=== PATIENT | male | born 1985 | race Caucasian/White ===

== ENCOUNTER 2017-02-11 11:23 | Emergency (ER) | payer BC, SELFPAY ==
[2017-02-11 12:30] VITALS: BP 134/89; PULSE 84; RESP 20; TEMP 37.2; O2SAT 99; BMI 25.8
== END 2017-02-11 20:00 | disposition home or self-care (01) ==
PROVIDERS: Emergency Provider Physician Assistant
DX: L72.3 Sebaceous cyst (principal)
CPT/HCPCS: 99202

== ENCOUNTER 2017-02-28 09:20 | Day surgery (SDC) | payer BC, SELFPAY ==
[2017-02-26 16:41] VITALS: BMI 25.0
[2017-02-28 10:10] VITALS: BP 163/83; PULSE 84; RESP 18; TEMP 36.9; O2SAT 98
--- NOTE | 2017-02-28 12:10 | HMH.ANESCL ---
[facility] Anesthesia Checklist - Patient Identification Patient Identification: Arm Band - Structural Data Admitted From: Home Planned Operative Procedure/s: excision right thigh lipoma Consent for Planned Operative Procedure(s) Verified: Yes Verified Documents: Surgical Consent, History and Physical - NPO Status Verified Time NPO: 00:00 - Additional verifications Anesthesia Reactions: No - Airway Assessment C-Spine Mobility Assessed: Yes (mp2) TMJ Mobility Assessed: Yes Dentition: Good Dentition - Neurological Assessment Level of Consciousness: Awake, Alert - Anesthesia Plan Anesthesia Risk discussed: Yes Anesthesia Plan: Verified ASA Class: II Anesthesia Type: General [facility] Anesthesia HX I have reviewed the patient's past medical history: Yes Medical History: Reports:: Seizures ( A CHILD) Denies:: Cancer, Diabetes Mellitus Type 1, Diabetes Mellitus Type 2, MRSA Other Medical History: Denies: Blood Transfusion Reaction Other Surgeries: Yes: Hernia Repair Amputation: No Fractures: No Comment: smoker *Family Hx:: Asthma, Diabetes, Heart Attack, Hypertension
--- NOTE | 2017-02-28 14:54 | SUR.PREOP ---
PT CHECKED. WENT TO BATHROOM WITHOUT DIFFICULTIES; URINATED.
--- NOTE | 2017-02-28 15:41 | P.OP_ITS ---
Date of procedure: 02/28/17 Pre-op Diagnosis:: Right thigh lipoma Post-op diagnosis:: same Procedure performed:: Excision of lipoma from right thigh (excisional length approximately 3 cm) with intermediate complexity closure Surgeon:: Melo Bang MD CHEMICAL INSTRUMENTATION OFFICER:: Florentino Lincoln Anesthesia: MAC, local Estimated blood loss (mL): 5 Clinical Note:: Patient is a 31-year-old white male who had been referred from the urgent treatment center for a cyst on the right thigh . He has had a palpable knot on the right thigh for several years however recently it had increased in size dramatically. He describes pain emanating from the region. He had essentially linear distribution of pain down the right lateral thigh. Patient also noted a left flank lipoma but he did not desire surgical excision of this. He was found to have lesion consistent with lipoma on the right lateral thigh. Options were discussed including nonoperative management. However, the patient felt that given the increasing size and discomfort that he would like to undergo surgical excision. Plan was made for excision with sedation. Operative findings:: Consistent with well-circumscribed subcutaneous lipoma Operative note:: Consent was obtained patient was taken to the operating room. Adequate intravenous sedation was achieved. The area was prepped and draped. Lesion was marked with a skin marker. Local anesthetic was infiltrated. Transverse incision was made. Careful dissection was carried down through full-thickness of the skin where well-circumscribed adipose tissue consistent with lipoma was encountered. This was carefully dissected free from surrounding tissues so as to excise it in its entirety and intact. It was sent off as a specimen. There was good hemostasis. Subdermal tissues were closed with interrupted 3-0 Vicryl. Skin was closed with 4-0 Monocryl in a subcuticular fashion. Clean dry sterile dressing was applied. Condition: stable Disposition: other Specimens:: Right thigh lipoma Complications:: None
[2017-02-28 15:45] VITALS: BP 104/58; PULSE 58; RESP 18; TEMP 36.6; O2SAT 98
[2017-02-28 16:00] VITALS: BP 102/68; PULSE 63; RESP 20; TEMP 36.6; O2SAT 98
[2017-02-28 16:15] VITALS: BP 112/53; PULSE 55; RESP 18; TEMP 36.8; O2SAT 98
== END 2017-02-28 16:18 | disposition home or self-care (01) ==
LOC: OR 09:21
PROVIDERS: PCP Physician Assistant; Visit Provider Surgery
PROC: (CPT 11403; principal; 2017-02-28 10:00)
DX: D17.23 Benign lipomatous neoplasm of skin and subcutaneous tissue of right leg (principal); M79.651 Pain in right thigh
CPT/HCPCS: 11403; 96374

== ENCOUNTER 2019-09-15 16:34 | Emergency (ER) | payer BC, SELFPAY ==
[2019-09-15 16:40] VITALS: BP 134/96; PULSE 81; RESP 16; TEMP 37; O2SAT 98; BMI 29.0
--- NOTE | 2019-09-15 17:01 | HMH.EDSKAF ---
ED Disposition Clinical Impression: Dermatophytosis Disposition: Home, Self-Care Condition on Discharge: Good Instructions: DI for Skin Abscess Prescriptions: Fluconazole [Diflucan 100mg tablet] 100 mg PO DAILY 21 Days #21 tab Transmission Status: Pending to [facility] Referrals: Jazmin Gordon PA [Primary Care Provider] - - Critical Care Critical Care Time: No Attestation: On , the high probability of a clinically significant, sudden or life threatening deterioration of the following system(s) required my full and direct attention, intervention and personal management. The time I documented below is in addition to time spent performing reported procedures but includes the following listed in this critical care notation. Medical Decision Making - Medical Records Medical records reviewed: Yes: I reviewed the patient's medical records. - [place] Inquiry Pt receiving controlled substance: No Vital Signs: 09/15/19 16:40 Temperature 98.6 F Temperature Source Oral Pulse Rate [Right Radial] 81 Respiratory Rate 16 Blood Pressure [Right Arm] 134/96 H Blood Pressure Mean [Right Arm] 108 Blood Pressure Source [Right Arm] Automatic Cuff Blood Pressure Position [Right Arm] Sitting 02 Sat by Pulse Oximetry 98 Oxygen Delivery Method Room Air - Lab Data Lab results reviewed: Yes: I reviewed the patient's lab results. Skin/Abscess/FB HPI - General Chief complaint: Skin/Abscess/Foreign Body Stated complaint: possible allergic reaction Time Seen by Provider: 09/15/19 17:00 Mode of Arrival: Ambulatory Limitations: No Limitations Description of Symptoms (Recalled from ER Triage Doc. by RN): Pt reports when he got home from work his SO noticed redness on the front of his neck. Pt reports his neck has been itching as work. Pt has welps noted to back of neck and top of L shoulder area. Pt denies SOA or pain. - History of Present Illness complaint: rash, lesion Onset (ago): day(s) Tetanus up to date: yes Location: chest, back Severity: mild Severity scale (1-10): 2 Quality: other (No symptoms) Consistency: constant Relieving factors: none Exacerbating factors: none Context: none Treatments prior to arrival: none - Related Data Previous Rx's Medication Instructions Recorded Azithromycin [Z-Perez 250mg Tab*] 250 mg PO UD DOSE PK #6 tab 09/15/18 methylPREDNISolone [Medrol 4mg 4 mg PO DIRECTED #21 tab 09/15/18 tab] ALBUTEROL HFA 90MCG (18GM) AER See Rx Instructions .ROUTE 09/27/18 .COMPLEX #18 unspecified Amoxicillin/Potassium Clav 1 tab PO Q12H 7 Days #14 tab 01/09/19 [Augmentin 875-125 Tablet] Fluconazole [Diflucan 100mg tablet] 100 mg PO DAILY 21 Days #21 tab 09/15/19 Allergies Allergy/AdvReac Type Severity Reaction Status Date / Time No Known Allergies Allergy Verified 06/11/17 15:11 [facility] History - Hepatitis A Screen Drug use history?: No High risk sexual behaviors?: No History of sexually transmitted infection?: No Currently employed?: No Childcare worker?: No Do you have indoor plumbing?: Yes Do you have electricity?: Yes Attestation statement:: This patient has been screened for Hepatitis A risk factors. I have reviewed the patient's past medical history: Yes Medical History: Reports:: Seizures Denies:: Cancer, Diabetes Mellitus Type 1, Diabetes Mellitus Type 2, MRSA Other Medical History: Denies: Blood Transfusion Reaction Other Surgeries: Yes: Hernia Repair Amputation: No Fractures: No Comment: smoker - Social History Smoking Status: Current every day smoker Tobacco Type: cigarettes # Packs/Day (cigarettes): 1 Alcohol Intake: never Alcohol Intake Frequency:: holidays/special occasions only Substance Use Type: marijuana Occupational Status: other Housing: house Household Members: family Family Hx:: Asthma, Diabetes, Heart Attack, Hypertension ROS Obtained: Yes All systems reviewed & no additional complaints - Constitutional Constitu
[2019-09-15 17:18] VITALS: BP 124/85; PULSE 87; RESP 18; TEMP 36.7; O2SAT 98
== END 2019-09-15 17:20 | disposition home or self-care (01) ==
LOC: ER 17:07
PROVIDERS: Emergency Provider Family Medicine; PCP Physician Assistant
DX: B35.9 Dermatophytosis, unspecified (principal); F17.210 Nicotine dependence, cigarettes, uncomplicated
CPT/HCPCS: 99281

== ENCOUNTER → 2019-10-02 15:55 | Outpatient (CLI) | payer BC, SELFPAY ==
[2019-10-02 16:14] LABS: Basophils % 0.7 % (0.1-2.0); Eosinophils # 0.3 K/mm3 (0.0-0.4); Eosinophils % 4.3 % (0.1-12.0); Hematocrit 43.2 % (42.0-52.0); Hemoglobin 15.3 g/dL (14.1-18.0); Lymphocytes # 2.4 K/mm3 (0.7-4.5); Lymphocytes % 40.1 % (10-50); Mean Corpuscular HGB Conc 35.4 g/dL (31.8-35.4); Mean Corpuscular Hemoglobin 31.7 pg (27.0-31.2); Mean Corpuscular Volume 89.8 fl (80-94); Mean Platelet Volume 10.1 fl (7.4-10.4); Monocytes # 0.3 K/mm3 (0.1-1.0); Monocytes % 5.7 % (1.7-9.3); Neutrophils # 2.9 K/mm3 (1.8-7.8); Neutrophils % 49.2 % (37.0-80.0); Platelet Count 157 K/mm3 (142-424); Red Blood Count 4.82 M/mm3 (4.60-6.20); Red Cell Distribution Width 12.7 % (11.5-17.5); White Blood Count 5.9 K/mm3 (4.8-10.8)
[2019-10-02 16:27] LABS: Chloride 105 mmol/L (98-107); Potassium 4.2 mmoL/L (3.5-5.1); Sodium 141 mmol/L (136-145)
[2019-10-02 16:29] LABS: Alanine Aminotransferase 13 U/L (12-78); Aspartate Amino Transferase 66 U/L (17-59); Blood Urea Nitrogen 16 mg/dl (9-20); Estimated Glomerular Filt Rate 132 ml/min (>60); GFR (African American) 159 ML/MIN (>60)
[2019-10-02 16:30] LABS: Albumin Level 4.6 g/dl (3.5-5.0); Alkaline Phosphatase 48 U/L (38-126); Anion Gap 14.2 mEq/L (5-15); Bilirubin,Total 0.6 mg/dl (0.2-1.3); Calcium 9.3 mg/dl (8.4-10.2); Carbon Dioxide 26 mmol/L (22.0-30.0); Chol/HDL Ratio 3.4 (1-3.5); Cholesterol 160 mg/dl (140-200); Globulin 2.3 g/dL (1.3-3.2); Glucose 93 mg/dl (74-100); HDL Cholesterol 47 mg/dl (40-60); Total Protein,Serum 6.9 g/dl (6.3-8.2); Triglycerides 75 mg/dl (30-150); VLDL Cholesterol 15 mg/dL (0-40)
[2019-10-02 16:41] LABS: Direct LDL Cholesterol 104.48 mg/dL (100-129)
[2019-10-02 16:47] LABS: T4 (Thyroxine) 7.3 ug/dl (5.53-11.0)
[2019-10-02 17:27] LABS: 25-OH Vitamin D, Total 26.8 ng/mL (30-100)
== END ==
PROVIDERS: Visit Provider Nurse Practitioner Family
DX: R51 Headache (principal); E55.9 Vitamin D deficiency, unspecified
CPT/HCPCS: 80053; 80061; 82306; 84436; 84443; 85025

== ENCOUNTER → 2021-02-06 05:50 | Outpatient (CLI) | payer BC, SELFPAY | PROVIDERS: PCP Physician Assistant; Visit Provider Emergency Medicine | DX: Z20.822 Contact with and (suspected) exposure to COVID-19 (principal) | CPT/HCPCS: C9803; U0003; U0005 ==

== ENCOUNTER 2021-02-12 12:07 | Emergency (ER) | payer BC, SELFPAY ==
[2021-02-12 13:15] VITALS: BP 144/89; PULSE 75; RESP 18; TEMP 36.7; O2SAT 99; BMI 20.5
--- NOTE | 2021-02-12 13:37 | HMH.EDUTC ---
[facility] [place] Clinical Impression: Exposure to COVID-19 virus Disposition: Home, Self-Care Condition on Discharge: Good Instructions: DI for COVID-19 (Suspected or Confirmed ), Preventing the Spread of Coronavirus Discharge Instructions Additional Instructions: *Monitor Temp, Over the counter Motrin or Tylenol as directed/as needed Tylenol every 4 hours and Motrin every 6 hours (as long as your family doctor has told you that you can take it) for fever or pain. and straight to ER if unable to lower temp less than 101.0 after medication given *Warm salt water gargles may help to soothe the throat *Throat Lozenges *Warm fluids like tea with honey may help to soothe the throat *Sleep elevated *Humidifier/Vaporizer Follow up IMMEDIATELY for new or worsening symptoms or no Noticeable improvement over the next 48-72 hours. 911 for difficulty breathing or swallowing You were tested for today for COVID19 your test result should be back in the next 24-48 hours, you may check your results on the [facility] if you have trouble logging on you may call You was given a handout with instructions for Self Quarantine and Self isolation for while you wait on test results and what to do if they are positive If you are positive the Health Dept will be contacting you also Make sure to take your Vitamins Vit. C Vit D and Zinc if you can take them Referrals: Jazmin Gordon PA [Primary Care Provider] - As needed Forms: Work/School Release Time of Disposition: 13:42 Medical Decision Making - [place] Inquiry Pt receiving controlled substance: No [place] was queried for this patient: No Vital Signs: 02/12/21 13:15 Temperature 98.0 F Temperature Source Oral Pulse Rate [Right Brachial] 75 Respiratory Rate 18 Blood Pressure [Right Arm] 144/89 H Blood Pressure Mean [Right Arm] 107 Blood Pressure Source [Right Arm] Automatic Cuff Blood Pressure Position [Right Arm] Sitting 02 Sat by Pulse Oximetry 99 Oxygen Delivery Method Room Air Orders (Tests/Meds): ORDERS Category Date Time Status Covid-19 Nasal PCR ([facility]) Routine Lab 02/12/21 13:25 [place]dered [facility] [place]PI - General Stated complaint: chills, cough, body aches Time Seen by Provider: 02/12/21 13:38 Mode of Arrival: Ambulatory Source of Information: Patient Limitations: No Limitations Description of Symptoms (Recalled from Triage Doc. by RN): PATIENT C/O HEADACHE, CHILLS, AND BODY ACHES SINCE THIS MORNING. RECENTLY EXPOSED TO COVID HEENT Symptoms (Recalled from RN notes): Yes Resp Symptoms (Recalled from RN notes): No Skin Symptoms (Recalled from RN notes): No MS Symptoms (Recalled from RN notes): No Functional Status (Recalled from RN notes): WNL - History of Present Illness Provider Complaint: Patient state that his girlfriend recently tested positive for COVID States that he woke up this morning having chills, headache and body aches so he came in to get tested to see if he may have COVID where he was exposed - Related Data Previous Rx's Medication Instructions Recorded butenafine 1 % topical cream 1 applic TOPICAL BID #30 g 09/16/19 sumatriptan succinate 100 mg tablet 100 mg PO Q2H PRN #10 tab 09/16/19 albuterol sulfate 90 mcg/actuation 2 inh INHALATION Q4-6H PRN #1 each 10/02/19 breath activated powder inhaler varenicline 0.5 mg tablet 0.5 mg PO BID #30 tab 10/02/19 cholecalciferol (vitamin D3) 1,250 1,250 mcg PO QWEEK #7 cap 10/04/19 mcg (50,000 unit) capsule Allergies Allergy/AdvReac Type Severity Reaction Status Date / Time No Known Allergies Allergy Verified 10/02/19 10:51 - Worker's Comp Is this a Worker's Comp case?: No [facility] History - Hepatitis A Screen Drug use history?: No High risk sexual behaviors?: No History of sexually transmitted infection?: No Currently employed?: No Childcare worker?: No Do you have indoor plumbing?: Yes Do you have electricity?: Yes Attestation statement:: This patient has been scree
[2021-02-12 13:46] VITALS: BP 144/89; PULSE 75; RESP 18; TEMP 36.7; O2SAT 99
== END 2021-02-12 13:47 | disposition home or self-care (01) ==
PROVIDERS: Emergency Provider Nurse Practitioner; PCP Physician Assistant
DX: U07.1 COVID-19 (principal); R05.1 Acute cough; R56.9 Unspecified convulsions; F17.210 Nicotine dependence, cigarettes, uncomplicated
CPT/HCPCS: 99202; C9803; G0463; U0003; U0005

== ENCOUNTER 2021-04-25 11:39 | Emergency (ER) | payer BC, SELFPAY ==
[2021-04-25 14:30] VITALS: BP 151/75; PULSE 68; RESP 18; TEMP 36.6; O2SAT 99; BMI 25.0
--- NOTE | 2021-04-25 14:32 | HMH.EDUTC ---
[facility] Disposition Clinical Impression: Low back pain Qualifiers: Chronicity: acute Back pain laterality: midline Sciatica presence: with sciatica Sciatica laterality: sciatica of left side Qualified Code(s): M54.42 - Lumbago with sciatica, left side Disposition: Home, Self-Care Condition on Discharge: Good Instructions: DI for Low Back Pain, DI for Sciatica Additional Instructions: Go home and rest. It would be best if you rested tomorrow too. No heavy lifting. No twisting. Take the oral medications as directed. The muscle relaxer (cyclobenzaprine--Flexeril) will make you drowsy, so don't drive or operate heavy machinery after taking it. Don't start the oral steroids (medrol dose pack) until tomorrow, since you had the shots in here today. Follow up with your regular doctor. GO TO THE ER FOR ANY WORSENING SYMPTOMS OR CONCERN, ESPECIALLY BOWEL OR BLADDER ISSUES, SADDLE AREA NUMBNESS, FEVER, ETC Prescriptions: Cyclobenzaprine HCl [Cyclobenzaprine 10mg Tab] 10 mg PO BIDP PRN #20 tab PRN Reason: Muscle Spasm Transmission Status: Received by [facility] methylPREDNISolone [Medrol] 4 mg PO DIRECTED 6 Days #21 packet Transmission Status: Received by [facility] Referrals: Jazmin Gordon PA [Primary Care Provider] - Forms: Work/School Release Time of Disposition: 14:35 Medical Decision Making - Medical Records Medical records reviewed: No: I reviewed the patient's medical records. - [place] Inquiry Pt receiving controlled substance: No Vital Signs: 04/25/21 14:30 04/25/21 14:59 Temperature 97.8 F 97.8 F Temperature Source Oral Oral Pulse Rate 61 Pulse Rate [Left Radial] 68 Respiratory Rate 18 18 Blood Pressure 135/74 Blood Pressure [Right Arm] 151/75 H Blood Pressure Mean [Right Arm] 100 02 Sat by Pulse Oximetry 99 Oxygen Delivery Method Room Air Orders (Tests/Meds): ED MEDICATIONS Discontinued Medications Generic Name Dose Route Start Last Admin Trade Name Freq PRN Reason Stop Dose Admin Ketorolac Tromethamine 60 mg 04/25/21 14:33 04/25/21 14:39 Ketorolac 60mg/2ml Vial IM 04/25/21 14:34 60 mg ONCE ONE Administration Methylprednisolone Sodium Succinate 125 mg 04/25/21 14:33 04/25/21 14:39 Methylprednisolone Sod Succ 125mg Vial IM 04/25/21 14:34 125 mg ONCE ONE Administration [facility] HPI - General Stated complaint: back pain, no accident Time Seen by Provider: 04/25/21 14:35 - History of Present Illness Provider Complaint: He states that since yesterday he has had low back pain that radiates down his right leg. He denies any injury or fall. - Related Data Previous Rx's Medication Instructions Recorded butenafine 1 % topical cream 1 applic TOPICAL BID #30 g 09/16/19 sumatriptan succinate 100 mg tablet 100 mg PO Q2H PRN #10 tab 09/16/19 albuterol sulfate 90 mcg/actuation 2 inh INHALATION Q4-6H PRN #1 each 10/02/19 breath activated powder inhaler varenicline 0.5 mg tablet 0.5 mg PO BID #30 tab 10/02/19 cholecalciferol (vitamin D3) 1,250 1,250 mcg PO QWEEK #7 cap 10/04/19 mcg (50,000 unit) capsule Cyclobenzaprine HCl 10 mg PO BIDP PRN #20 tab 04/25/21 [Cyclobenzaprine 10mg Tab] methylPREDNISolone [Medrol] 4 mg PO DIRECTED 6 Days #21 04/25/21 packet Allergies Allergy/AdvReac Type Severity Reaction Status Date / Time No Known Allergies Allergy Verified 10/02/19 10:51 [facility] History - Hepatitis A Screen Attestation statement:: This patient has been screened for Hepatitis A risk factors. I have reviewed the patient's past medical history: Yes Medical History: Reports:: Seizures Denies:: Cancer, Diabetes Mellitus Type 1, Diabetes Mellitus Type 2, MRSA Other Medical History: Denies: Blood Transfusion Reaction Other Surgeries: Yes: Hernia Repair Amputation: No Fractures: No Comment: Rt Thigh cyst removal - Social History Smoking Status: Current every day smoker Tobacco Type: cigarettes #
[2021-04-25 14:59] VITALS: BP 135/74; PULSE 61; RESP 18; TEMP 36.6; O2SAT 99
== END 2021-04-25 15:03 | disposition home or self-care (01) ==
PROVIDERS: Emergency Provider Nurse Practitioner Family; PCP Physician Assistant
DX: M54.42 Lumbago with sciatica, left side (principal)
CPT/HCPCS: 96372; 99212; G0463

== ENCOUNTER 2021-05-17 15:00 | Outpatient (RCR) | payer BC, SELFPAY ==
--- NOTE | 2021-05-06 09:24 | HMH.PTOPEV ---
PT Outpatient Evaluation Rehab PT Outpatient Evaluation Start: 05/06/21 09:11 Freq: Status: Active Protocol: Document 05/06/21 09:11 SYDNEE (Rec: 05/06/21 09:24 [email or web address] [id number]) Electronically Signed By Nik Isaacs, PT 05/06/21 09:11 Outpatient Therapy Subjective History Subjective History Patient is a 35 year old male presenting to outpatient PT with reports of acute LBP with intermittent BLE radicular symptoms starting approximately 2 weeks ago. No recent imaging to report. Patient most recently received a steroid injection that has provided some relief. No other comorbidities to report. Chief Complaint Pain,Stiff,Paresthesia Symptom Type Sharp Symptoms Relieved By Rest/Positioning,Ice, Prescription Meds Symptoms Aggravated By Sitting,Bending/Stooping, Lifting Prior Functional Limitations None Current Functional Limitations Lifting,Sitting,Bending/ Stooping Symptom Description Constant but Variable Level of pain today (0-10) 2 Pain scale - at its best (0-10) 2 Pain scale - at its worst (0-10) 6 Lumbopelvic Eval Posture Thoracic Spine Posture Standing Position Neutral Lumbar Spine Posture Standing Position Neutral Assistive device Assistive Devices None / NA Palapation tenderness bilateral lumbar spinal tenderness Yes: L1-3 2/4 paraspinal tenderness Yes: Lumbar/Sacral Palpation Findings Tenderness Accessory Movement L2 bilateral L3 bilateral Range of Motion Lumbar Spine Active Flexion Range of 50 Motion (degrees) Lumbar Spine Active Extension Range of 20 Motion (degrees) Left Lumbar Spine Lateral Flexion Active 24 Range of Motion (degrees) Right Lumbar Spine Lateral Flexion 20 Active Range of Motion (degrees) Lumbar Spine ROM Limitations Soft Tissue Tightness Manual Muscle Test Bilateral Knee Extension Strength Grade 5 Normal Knee Flexion Strength Grade 5 Normal Hip Flexion Strength Grade 5 Normal Extensor Hallucis Longus Strength Grade 5 Normal Ankle Dorsiflexion Strength Grade 5 Normal Gastronemius/Soleus Strength Grade 5 Normal Special Tests Lumbar Spine Screen Positive Hip Manpreet (KHARI) Test Positive Left,Positive Right Hip Zeferino Test Positive Left,Positive Right Hip Piriformis Test Positive Left,Positive Rig
== END 2021-05-17 15:05 | disposition home or self-care (01) ==
LOC: PT 15:00
PROVIDERS: PCP Physician Assistant; Visit Provider Nurse Practitioner Family
DX: M54.50 Low back pain, unspecified (principal)
CPT/HCPCS: 97110; 97163

== ENCOUNTER → 2021-05-24 12:33 | Outpatient (CLI) | payer BC, SELFPAY ==
--- NOTE | 2021-05-24 12:36 | XR_ITS ---
FINAL REPORT CLINICAL HISTORY: L Knee pain FINDINGS: LEFT KNEE 4 views were obtained. There is no acute fracture or dislocation. The joint spaces are intact. There is no soft tissue abnormality. IMPRESSION: No acute bony abnormality. Reviewed, Interpreted and Dictated by Melo Leblanc III, MD Transcribed by Tierra Osei Authenticated by Melo Leblanc III, MD on 05/24/2021 02:02:58 PM [facility]
== END ==
PROVIDERS: PCP Nurse Practitioner Family; Visit Provider Nurse Practitioner Family
DX: M25.562 Pain in left knee (principal)
CPT/HCPCS: 73564

== ENCOUNTER 2021-12-27 14:03 | Emergency (ER) | payer BC, SELFPAY ==
[2021-12-27 15:05] VITALS: BP 131/86; PULSE 70; RESP 18; TEMP 37.1; O2SAT 98; BMI 22.9
--- NOTE | 2021-12-27 15:31 | EXP.UTC ---
Discharge Plan Disposition Patient Disposition: Home, Self-Care Condition: Good Prescriptions Prescriptions: New azithromycin [Zithromax Z-Perez] 250 mg tablet See Rx Instructions .ROUTE .COMPLEX 5 Days Qty: 6 0RF Rx Instructions: For 250 mg dose pack: take 500 mg today (day 1), then 250 mg for 4 days (days 2-5) methylprednisolone [Medrol (Perez)] 4 mg tablets,dose pack See Rx Instructions .Route .COMPLEX 6 Days Qty: 21 0RF Rx Instructions: taper pack; Referrals Follow up/Referrals: Jazmin Gordon PA [Primary Care Provider] - See instructions Activity Restrictions/Add. Instructions Additional Instructions/Restrictions: *Monitor Temp, Over the counter Motrin or Tylenol as directed/as needed Tylenol every 4 hours and Motrin every 6 hours (as long as your family doctor has told you that you can take it) for fever or pain. and straight to ER if unable to lower temp less than 101.0 after medication given *Warm salt water gargles may help to soothe the throat *Throat Lozenges? *Warm fluids like tea with honey may help to soothe the throat? *Sleep elevated *Humidifier/Vaporizer Your throat swab was sent for culture. Those results are typically sent to your primary care. Be sure to follow up in 2-3 days with your family doctor/primary care physician if no improvement so they can review those result and treat if necessary. If you don?t have a primary care doctor, I recommend you get one but in the mean time, you will have to return to a walk in clinic Follow up IMMEDIATELY for new or worsening symptoms or no Noticeable improvement over the next 48-72 hours. 911 for difficulty breathing or swallowing Clinical Impressions Clinical Impression: URI (upper respiratory infection) Stand Alone Forms Stand Alone Forms: Work/School Release Instructions Patient Instructions: Sore Throat, DI for Sinusitis Discharge ED Provider: Tamika Day [facility] HPI General Stated complaint: congestion, sore throat, hurts when breathing Mode of Arrival: Ambulatory Source of Information: Patient Limitations: No Limitations Time Seen by Provider: 12/27/21 15:31 Description of Symptoms (Recalled from Triage Doc. by RN): PATIENT C/O SORE THROAT, NASAL AND CHEST CONGESTION X 1 WEEK HEENT Symptoms (Recalled from RN notes): Yes Resp Symptoms (Recalled from RN notes): No Skin Symptoms (Recalled from RN notes): No MS Symptoms (Recalled from RN notes): No Functional Status (Recalled from RN notes): WNL History of Present Illness Provider Complaint: Patient state that he has been having sore throat, sinus and chest congestion for about a week State that today he was having cough and his throat was hurting worse so he came in Related Data Previous Rx's Medication Instructions Recorded azithromycin 250 mg tablet See Rx Instructions PO .COMPLEX 5 12/27/21 (Zithromax Z-Perez) days #6 tabs methylprednisolone 4 mg tablets in See Rx Instructions .Route 12/27/21 a dose pack (Medrol (Perez)) .COMPLEX 6 days #21 tabs Allergies Allergy/AdvReac Type Severity Reaction Status Date / Time No Known Allergies Allergy Verified 09/02/21 16:05 Worker's Comp Is this a Worker's Comp case?: No PFSH PFSH Medical History (Updated 12/27/21 @ 15:38 by Tamika Day APRN) Migraine Seizures Social History (Updated 12/27/21 @ 15:18 by Estephania Mock RN) Smoking Status: Current every day smoker tobacco type: cigarettes packs per day: 1 alcohol intake: never counseling provided: provider counseling substance use type: marijuana current occupational status: other Travel in the last 8 weeks: None household members: family housing: house current occupation: college ROS Obtained: Yes All systems reviewed & no additional complaints except as documented and Yes Systems reviewed as appropriate & no additional complaints except as documented Constitutional Constitutional: Reports system
[2021-12-27 15:42] VITALS: BP 131/86; PULSE 70; RESP 18; TEMP 37.1; O2SAT 98
== END 2021-12-27 15:45 | disposition home or self-care (01) ==
PROVIDERS: Emergency Provider Nurse Practitioner; PCP Physician Assistant
DX: J06.9 Acute upper respiratory infection, unspecified (principal); J02.9 Acute pharyngitis, unspecified; R09.81 Nasal congestion; G40.909 Epilepsy, unspecified, not intractable, without status epilepticus; G43.909 Migraine, unspecified, not intractable, without status migrainosus; F17.210 Nicotine dependence, cigarettes, uncomplicated; Z79.52 Long term (current) use of systemic steroids
CPT/HCPCS: 99213; G0463

== ENCOUNTER → 2022-04-14 11:00 | Outpatient (CLI) | payer BC, SELFPAY ==
[2022-04-14 19:12] LABS: Basophils # 0.1 K/mm3 (0-0.2); Basophils % 0.9 % (0.1-2.0); Eosinophils # 0.3 K/mm3 (0.0-0.4); Eosinophils % 4.6 % (0.1-12.0); Hematocrit 45.1 % (42.0-52.0); Hemoglobin 14.8 g/dL (14.1-18.0); Lymphocytes # 2.2 K/mm3 (0.7-4.5); Lymphocytes % 36.9 % (10-50); Mean Corpuscular HGB Conc 32.7 g/dL (31.8-35.4); Mean Corpuscular Volume 94.6 fl (80-94); Monocytes # 0.5 K/mm3 (0.1-1.0); Monocytes % 7.9 % (1.7-9.3); Neutrophils # 2.9 K/mm3 (1.8-7.8); Neutrophils % 49.7 % (37.0-80.0); Platelet Count 166 K/mm3 (142-424); Red Blood Count 4.77 M/mm3 (4.60-6.20); Red Cell Distribution Width 12.9 % (11.5-17.5); White Blood Count 5.8 K/mm3 (4.8-10.8)
[2022-04-14 19:43] LABS: Chloride 103 mmol/L (98-107); Potassium 3.9 mmoL/L (3.5-5.1); Sodium 140 mmol/L (136-145)
[2022-04-14 19:45] LABS: Blood Urea Nitrogen 10 mg/dl (9-20); Estimated Glomerular Filt Rate 111 ml/min (>60); GFR (African American) 134 ML/MIN (>60)
[2022-04-14 19:46] LABS: Alanine Aminotransferase 19 U/L (12-78); Albumin Level 4.8 g/dl (3.5-5.0); Albumin/Globulin Ratio 2.2 (1.1-1.8); Alkaline Phosphatase 56 U/L (38-126); Anion Gap 11.9 mEq/L (5-15); Aspartate Amino Transferase 29 U/L (17-59); Bilirubin,Total 0.3 mg/dl (0.2-1.3); Calcium 9.1 mg/dl (8.4-10.2); Carbon Dioxide 29 mmol/L (22.0-30.0); Chol/HDL Ratio 3.1 (1-3.5); Cholesterol 129 mg/dl (140-200); Globulin 2.2 g/dL (1.3-3.2); Glucose 101 mg/dl (74-100); HDL Cholesterol 41 mg/dl (40-60); Triglycerides 212 mg/dl (30-150); VLDL Cholesterol 42 mg/dL (0-40)
[2022-04-14 19:57] LABS: Direct LDL Cholesterol 70.27 mg/dL (100-129)
[2022-04-14 20:00] LABS: 25-OH Vitamin D, Total 32.6 ng/mL (30-100)
[2022-04-24 17:23] LABS: Testosterone, Total, LC/MS 619 ng/dL (.)
== END ==
PROVIDERS: PCP Nurse Practitioner Family; Visit Provider Nurse Practitioner Family
DX: I10 Essential (primary) hypertension (principal); R53.83 Other fatigue; Z00.00 Encounter for general adult medical examination without abnormal findings; R68.82 Decreased libido
CPT/HCPCS: 80053; 80061; 82306; 84403; 84443; 85025

== ENCOUNTER 2023-06-06 14:58 | Emergency (ER) | payer MEDICAID, SELFPAY ==
[2023-06-06 15:00] VITALS: BP 138/87; PULSE 61; RESP 19; TEMP 36.8; O2SAT 96; BMI 24.0
--- NOTE | 2023-06-06 15:16 | ED_ITS ---
Discharge Plan Disposition Patient Disposition: Home, Self-Care Condition: Good Prescriptions Prescriptions: No Action No Known Home Medications Referrals Follow up/Referrals: Jazmin Gordon PA [Primary Care Provider] - See instructions Activity Restrictions/Add. Instructions Additional Instructions/Restrictions: follow up with enrique Clinical Impressions Clinical Impression: Foreign body in eye Instructions Patient Instructions: DI for Foreign Body in the Eye Discharge ED [facility]ren [facility] [place] HPI General Stated complaint: object in eye Mode of Arrival: Ambulatory Source of Information: Patient Limitations: No Limitations Time Seen by Provider: 06/06/23 15:16 Description of Symptoms (Recalled from Triage Doc. by RN): Pt was using a grinder and plater over the weekend and got a metal shaving in his right eye. He used a magnet to try and get it out and it made it worse. His right is red and irr itated. HEENT Symptoms (Recalled from RN notes): Yes Resp Symptoms (Recalled from RN notes): No Skin Symptoms (Recalled from RN notes): No MS Symptoms (Recalled from RN notes): No Functional Status (Recalled from RN notes): n/a History of Present Illness Provider Complaint: 37 yr old male presents for eye pain. Pt was using a grinder and plater over the weekend and got a metal shaving in his right eye. He used a magnet to try and get it out and it made it worse. His right is red and irritated. Related Data Home Medications Medication Instructions Recorded Confirmed No Known Home Medications 06/14/22 06/14/22 Allergies Allergy/AdvReac Type Severity Reaction Status Date / Time No Known Allergies Allergy Verified 06/06/23 15:15 Worker's Comp Is this a Worker's Comp case?: No [facility] Disclaimer: The information contained in this section may have been updated after the patient was seen, as this information can be updated by other users. 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) Smoking Status: Current every day smoker tobacco type: cigarettes packs per day: 1 alcohol intake: never counseling provided: provider counseling substance use type: marijuana current occupational status: other Travel in the last 8 weeks: None household members: family housing: house current occupation: college ROS Obtained: Yes All systems reviewed & no additional complaints except as documented Constitutional Constitutional: Reports system reviewed and no additional complaints, except as documented Eyes Eyes: Reports system reviewed and no additional complaints, except as document ed, Reports as per HPI, Reports irritation and Reports eye pain ENT Ears, Nose, Mouth, and Throat: Reports system reviewed and no additional complaints, except as documented Cardiovascular Cardiovascular: Reports system reviewed and no additional complaints, except as documented Respiratory Respiratory: Reports system reviewed and no additional complaints, except as documented Integumentary/Breasts Skin/Breast: Reports system reviewed and no additional complaints, except as documented Neurologic Neurologic: Reports system reviewed and no additional complaints, except as documented Endocrine Endocrine: Reports system reviewed and no additional complaints, except as documented Allergic/Immunologic Allergic/Immunologic: Reports system reviewed and no additional complaints, except as documented Physical Exam General General appearance: alert and in no apparent distress Head Head exam: atraumatic Eye Eye exam: Present normal appearance, PERRL, conjunctival redness, conjunctival injection and other (fb present) ENT ENT exam: Present normal exam Respiratory Respiratory exam: Present normal lung sounds bilaterally Cardiovascular Cardiovascular exam: Present regular rate and normal rhythm Neurological Exam Neurological exam: Present alert and oriented X3 Skin Skin exam: Present warm and intact Medical Decision Making Medical Records Medical records reviewed: Yes I reviewed the patient's medical records. [place] Inquiry Pt receiving controlled substance: No [place] was queried for this patient: No Vital Signs: 06/06/23 15:00 Temperature 98.2 F Temperature Source Oral Pulse Rate [Right Radial] 61 Respiratory Rate 19 Blood Pressure [Right Arm] 138/87 Blood Pressure Mean [Right Arm] 104 Blood Pressure Source [Right Arm] Automatic Cuff Blood Pressure Position [Right Arm] Sitting 02 Sat by Pulse Oximetry 96 Oxygen Delivery Method Room Air Medical Decision Narrative: spoke with dr nunez office will see pt- sent pt to maury nunez
[2023-06-06 15:31] VITALS: BP 138/87; PULSE 61; RESP 19; TEMP 36.8; O2SAT 96
== END 2023-06-06 15:30 | disposition home or self-care (01) ==
PROVIDERS: Emergency Provider Nurse Practitioner Family; PCP Physician Assistant
DX: T15.91XA Foreign body on external eye, part unspecified, right eye, initial encounter (principal); W44.D0XA Magnetic metal object unspecified, entering into or through a natural orifice, initial encounter; W31.1XXA Contact with metalworking machines, initial encounter
CPT/HCPCS: 99212; 99213; G0463